=== PATIENT | female | born 1990 | race African-American/Black ===

== ENCOUNTER 2016-03-25 16:42 | Emergency (ER) | payer OTHER ==
[~2016-03-25] VITALS: Ht 157.5 cm; Wt 47.6 kg
[~2016-03-25 16:42] MED LIST: FLUCONAZOLE100 MG ORAL; IBUPROFEN600 MG ORAL; KEFLEX500 MG ORAL; NITROFURANTOIN100 M2 ORAL; NKM; PENLAC6.6 M1 TP
[2016-03-25 17:14] VITALS: BP 104/66
[2016-03-25 17:33] LABS: APPEARANCE,URINE CLEAR; KETONES,URINE NEGATIVE (NEGATIVE); LEUKOCYTE ESTERASE ,URINE 1+ (NEGATIVE); NITRITE,URINE NEGATIVE (NEGATIVE); PH,URINE 8 (4.5-8.0); PROTEIN,URINE NEGATIVE (NEGATIVE); UROBILINOGEN,URINE NORMAL MG/DL (0.0-1.0)
[2016-03-25 17:40] LABS: BACTERIA,URINE FEW /HPF; RBC,URINE 0-2 /HPF (0 - 2); SQUAMOUS EPITHELIAL CELL,UR MODERATE /LPF (NONE/OCC)
[2016-03-25] MEDS ORDERED: Lidocaine 1% MPF 10mg/ml 5ml ONE (17:58)
[2016-03-25] MEDS ORDERED: Azithromycin 250mg tab ORAL ONE (18:00)
--- NOTE | 2016-03-25 18:08 | Emergency Room Report ---
History of Present Illness General Chief Complaint: Female Urogenital Problems Source: Patient Present Illness [facility] The patient is a 25-year-old female presenting with gonorrhea exposure. The patient states that her male partner was diagnosed with gonorrhea one week prior and was treated with Rocephin and azithromycin. The patient states that she was sexually active with this partner before he was treated. The patient does admit to increased vaginal discharge which is described as clear to white for the past 2 days. The patient also admits to increased urinary frequency. The patient denies dysuria, hematuria, vaginal bleeding, abdominal pain, cramping, flank pain, nausea, vomiting, fever, chills Allergies: Coded Allergies: No Known Allergies (Unverified , 12/04/13) Patient History Past Medical History: see triage record Pertinent Family History: none Last Menstrual Period: 10/27/15 Now: No Reviewed Nursing Documentation: PMH: Agreed, PSxH: Agreed Nursing Documentation-PMH Past Medical History: No History, Except For Review of Systems All Other Systems: negative except mentioned in HPI Physical Exam Vital Signs Date Time Temp Pulse Resp B/P Pulse Ox O2 Delivery O2 Flow Rate FiO2 03/25/16 17:08 98.8 65 14 104/66 98 Room Air Sp02 EP Interpretation: reviewed, normal General Appearance: no apparent distress, alert, GCS 15, non-toxic Head: normocephalic, atraumatic Eyes: bilateral eye PERRL, bilateral eye normal inspection ENT: hearing grossly normal, normal pharynx, no angioedema, normal voice Neck: full range of motion, supple/symm/no masses Respiratory: chest non-tender, lungs clear, normal breath sounds, speaking full sentences Cardiovascular #1: regular rate, rhythm, no edema Cardiovascular #2: 2+ carotid (R), 2+ carotid (L), 2+ radial (R), 2+ radial (L) , 2+ dorsalis pedis (R), 2+ dorsalis pedis (L) Gastrointestinal: normal bowel sounds, non tender, soft, non-distended, no guarding, no rebound Rectal: deferred Genitourinary: normal inspection, no CVA tenderness Musculoskeletal: back normal, gait/station normal, normal range of motion, non- tender Neurologic: alert, oriented x3, responsive, motor strength/tone normal, sensory intact, speech normal Psychiatric: judgement/insight normal, memory normal, mood/affect normal, no suicidal/homicidal ideation Reflexes: 3+ bicep (R), 3+ bicep (L), 3+ tricep (R), 3+ tricep (L), 3+ knee (R) , 3+ knee (L) Skin: normal color, no rash, warm/dry, well hydrated Lymphatic: no adenopathy Medical Decision Making PA Attestation Dr. Evans is my supervising physician. Patient management was discussed with my supervising physician Diagnostic Impression: Primary Impression: STD exposure ER Course The patient is a 25-year-old female presenting with gonorrhea exposure. DDx: Sexually-transmitted infection, UTI, pyelonephritis, miscarriage PE: PE: Vitals WNL. NAD. Abdomen: Normal appearance. Non distended. No ecchymosis. Normal BS. Non TTP. No McBurney point tenderness. No guarding. No CVA tenderness Urinalysis: Unremarkable. 1+ leukocyte esterace with 2-4 WBC. The patient will be treated for sexually transmitted infection do to exposure. The patient is given Rocephin IM and 2 g of azithromycin. The patient will be discharged and is told to followup with [facility] as soon as possible. The patient and her partner will both be tested for STD before becoming sexually active Laboratory Tests Test 03/25/16 17:18 Urine Color Pale yellow Urine Appearance Clear Urine pH 8 (4.5-8.0) Urine Specific Steward 1.010 (1.005-1.035) Urine Protein Negative (NEGATIVE) Urine Glucose (UA) Negative (NEGATIVE) Urine Ketones Negative (NEGATIVE) Urine Occult Blood Negative (NEGATIVE) Urine Nitrite Negative (NEGATIVE) Urine Bilirubin Negative (NEGATIVE) Urine Urobilinogen Normal MG/DL (0.0-1.0) Urine Leukocyte Esterase 1+ (NEGATIVE) H Urine RBC 0-2 /HPF (0 - 2) Urine WBC 2-4 /HPF (0 - 2) Urine Squamous Epithelial Cells Moderate /LPF (NONE/OCC) H Urine Bacteria Few /HPF (NONE) Urine HCG, Qualitative Positive Lab Results Impression Urinalysis: Unremarkable. 1+ leukocyte esterace with 2-4 WBC. + preg Last Vital Signs Date Time Temp Pulse Resp B/P Pulse Ox O2 Delivery O2 Flow Rate FiO2 03/25/16 17:14 98.8 79 14 104/66 98 Room Air Status: improved Disposition: HOME, SELF-CARE Condition: Improved Patient Instructions: Sexually Transmitted Disease Additional Instructions: I discussed my findings with the patient. All questions and concerns have been answered. Treatment and medication compliance have been addressed. I advised the patient that they need to follow up with PMD in 3-5 days. Return to ED if symptoms worsen, new symptoms arise, or if needed for any reason. Patient verbalized understanding of discharge instructions. Follow up with [facility] YVES. THERESA REDMAN Mar 25, 2016 18:08
[2016-03-25 18:09] VITALS: BP 104/66
== END 2016-03-25 18:10 | disposition home or self-care (01) ==
LOC: EMR 17:23
DX: Z20.2 Contact with and (suspected) exposure to infections with a predominantly sexual mode of transmission (principal); N89.8 Other specified noninflammatory disorders of vagina
CPT/HCPCS: 81003; 81025; 96372; 99283; J0696; Q0144

== ENCOUNTER 2016-04-24 17:49 | Emergency (ER) | payer OTHER ==
[~2016-04-24] VITALS: Ht 157.5 cm; Wt 47.6 kg
[2016-04-24 18:18] VITALS: BP 117/56
[2016-04-24 18:49] LABS: APPEARANCE,URINE SLIGHTLY CLOUDY; KETONES,URINE NEGATIVE (NEGATIVE); PROTEIN,URINE NEGATIVE (NEGATIVE)
[2016-04-24 18:50] LABS: LEUKOCYTE ESTERASE ,URINE 2+ (NEGATIVE); NITRITE,URINE NEGATIVE (NEGATIVE); UROBILINOGEN,URINE NORMAL MG/DL (0.0-1.0)
[2016-04-24 18:59] LABS: BACTERIA,URINE FEW /HPF; RBC,URINE 0-2 /HPF (0 - 2); SQUAMOUS EPITHELIAL CELL,UR MODERATE /LPF (NONE/OCC)
[2016-04-24 19:25] VITALS: BP 117/56
[2016-04-24] MEDS ORDERED: KEFLEX250 M1 PO (19:27)
--- NOTE | 2016-04-24 20:36 | Emergency Room Report ---
History of Present Illness General Chief Complaint: Female Urogenital Problems Source: Patient Present Illness [facility] The patient is a 25-year-old female at 25 weeks gestation presenting for yellow vaginal discharge, vaginal itching, and vaginal swelling which began one week prior. The pt denies dysuria, hematuria, or other vaginal DC. Pt also denies N, V, F, chills, flank pain, abd pain, cramping Allergies: Coded Allergies: No Known Allergies (Unverified , 12/04/13) Patient History Past Medical History: see triage record Pertinent Family History: none Last Menstrual Period: 10/24/15 Now: Yes - 25 wk Reviewed Nursing Documentation: PMH: Agreed, PSxH: Agreed Nursing Documentation-PMH Past Medical History: No History, Except For Review of Systems All Other Systems: negative except mentioned in HPI Physical Exam Vital Signs Date Time Temp Pulse Resp B/P Pulse Ox O2 Delivery O2 Flow Rate FiO2 04/24/16 18:04 97.7 93 16 117/56 99 Room Air Sp02 EP Interpretation: reviewed, normal General Appearance: no apparent distress, alert, GCS 15, non-toxic Head: normocephalic, atraumatic Eyes: bilateral eye PERRL, bilateral eye normal inspection ENT: hearing grossly normal, normal pharynx, no angioedema, normal voice Neck: full range of motion, supple/symm/no masses Gastrointestinal: normal bowel sounds, non tender, soft, no mass, no guarding, no rebound Genitourinary: normal inspection, no CVA tenderness Musculoskeletal: back normal, gait/station normal, normal range of motion, non- tender Neurologic: alert, oriented x3, responsive, motor strength/tone normal, sensory intact, speech normal Psychiatric: judgement/insight normal, memory normal, mood/affect normal, no suicidal/homicidal ideation Skin: normal color, no rash, warm/dry, well hydrated Lymphatic: no adenopathy Medical Decision Making PA Attestation Dr. Foy is my supervising physician. Patient management was discussed with my supervising physician Diagnostic Impression: Primary Impression: UTI (urinary tract infection) ER Course The patient is a 25-year-old female at 25 weeks gestation presenting for yellow vaginal discharge, vaginal itching, and vaginal swelling which began one week prior Differential diagnosis considered but not limited to: UTI, vaginitis, pyelonephritis, STD, BV, vaginal yeast infection PE: vitals WNL. NAD Abdomen is soft and nontender. Normal bowel sounds. No guarding. No CVA tenderness. There is abdominal distention consistent with . Urinalysis is consistent with urinary tract infection. The patient will be discharged with a prescription for Keflex and will followup with [facility] as soon as possible for further treatment and evaluation. The patient states that she will make an appointment as soon as possible. ER precautions are given Last Vital Signs Date Time Temp Pulse Resp B/P Pulse Ox O2 Delivery O2 Flow Rate FiO2 04/24/16 18:18 97.7 93 16 117/56 99 Room Air Status: improved Disposition: HOME, SELF-CARE Condition: Improved Scripts Cephalexin (Keflex) 250 Mg Capsule 250 MG PO Q6HR, #28 CAP Prov: THERESA REDMAN 04/24/16 Referrals: [facility],REFERR[facility] (PCP) Patient Instructions: Urinary Tract Infection Additional Instructions: I discussed my findings with the patient. All questions and concerns have been answered. Treatment and medication compliance have been addressed. I advised the patient that they need to follow up with PMD in 3-5 days. Return to ED if symptoms worsen, new symptoms arise, or if needed for any reason. Patient verbalized understanding of discharge instructions. The patient is advised to followup with [facility] as soon as possible THERESA REDMAN Apr 24, 2016 20:36
== END 2016-04-24 19:25 | disposition home or self-care (01) ==
LOC: EMR 18:35
DX: O23.42 Unspecified infection of urinary tract in pregnancy, second trimester (principal); Z3A.25 25 weeks gestation of pregnancy
CPT/HCPCS: 81003; 81025; 87086; 99283

== ENCOUNTER 2016-08-12 16:57 | Emergency (ER) | payer OTHER ==
[~2016-08-12] VITALS: Ht 157.5 cm; Wt 45.4 kg
[~2016-08-12 16:57] MED LIST changes: +KEFLEX250 M1 PO
[2016-08-12] MEDS ORDERED: Ipratropium 0.02% Inh Soln 2.5ml UD HHN ONE (17:30)
[2016-08-12] MEDS ORDERED: Albuterol ud Inhalation HHN ONE (17:30)
[2016-08-12 17:36] VITALS: BP 116/83
[2016-08-12] MEDS ORDERED: AMOXICILLIN500 MG ORAL (18:29)
[2016-08-12] MEDS ORDERED: PREDNISONE20 MG ORAL (18:29)
[2016-08-12 18:56] VITALS: BP 118/82
[2016-08-12 18:59] VITALS: BP 118/82
--- NOTE | 2016-08-12 20:46 | Emergency Room Report ---
History of Present Illness General Chief Complaint: Upper Respiratory Illness Source: Patient Present Illness HPI The patient is a 25-year-old female who denies medical history presenting for cough, sore throat, and shortness of breath for the past 3 days. The patient went to another emergency department where a chest x-ray was done and was said to be unremarkable. She was discharged with a prescription for albuterol only which has not been helping. The patient states pain is a 5/10 dull ache to the mid chest and occurs only with coughing. She denies any sick contacts recent travel. She denies other symptoms including N, V, F, chills, rash, diaphoresis Allergies: Coded Allergies: No Known Allergies (Unverified , 12/04/13) Patient History Past Medical History: see triage record Pertinent Family History: none Last Menstrual Period: 10/26/2015 Now: No Reviewed Nursing Documentation: PMH: Agreed, PSxH: Agreed Nursing Documentation-PMH Past Medical History: No History, Except For Hx Asthma: Yes - Bronchittis Review of Systems All Other Systems: negative except mentioned in HPI Physical Exam Vital Signs Date Time Temp Pulse Resp B/P Pulse Ox O2 Delivery O2 Flow Rate FiO2 08/12/16 17:03 97.2 98 16 116/83 98 Room Air 08/12/16 17:40 21 Sp02 EP Interpretation: reviewed, normal General Appearance: no apparent distress, alert, GCS 15, non-toxic Head: normocephalic, atraumatic Eyes: bilateral eye PERRL, bilateral eye normal inspection ENT: hearing grossly normal, no angioedema, normal voice, TMs + canals normal, uvula midline, tonsillar swelling, pharyngeal erythema Neck: full range of motion, supple/symm/no masses Respiratory: chest non-tender, lungs clear, normal breath sounds, no respiratory distress, no accessory muscle use, no wheezing, speaking full sentences Cardiovascular #1: regular rate, rhythm, no edema Musculoskeletal: back normal, gait/station normal, normal range of motion, non- tender Neurologic: alert, oriented x3, responsive, motor strength/tone normal, sensory intact, speech normal Psychiatric: judgement/insight normal, memory normal, mood/affect normal, no suicidal/homicidal ideation Skin: normal color, no rash, warm/dry, well hydrated Lymphatic: adenopathy Medical Decision Making PA Attestation Dr. Arnold is my supervising physician. Patient management was discussed with my supervising physician Diagnostic Impression: Primary Impression: Pharyngitis, acute Qualified Codes: J02.9 - Acute pharyngitis, unspecified ER Course The patient is a 25-year-old female who denies medical history presenting for cough, sore throat, and shortness of breath Differential diagnosis include but not limited to pharyngitis, asthma, sinusitis , AOM, bronchitis, PNA Physical exam: Vitals within normal limits. Afebrile. No apparent distress HEENT exam: There is bilateral tonsillar edema, erythema. Uvula midline. Moist mucous membranes. There is bilateral cervical lymphadenopathy. Lungs are clear to auscultation bilaterally Skin is warm and dry. No rash The patient was given breathing treatment to see if SOB symptoms improve. It has not. The patient will be discharged home with a prescription for amoxicillin, prednisone, and is given ER precautions. Patient will followup with primary care Last Vital Signs Date Time Temp Pulse Resp B/P Pulse Ox O2 Delivery O2 Flow Rate FiO2 08/12/16 18:59 97.2 89 16 118/82 98 Room Air 21 Status: improved Disposition: HOME, SELF-CARE Condition: Improved Scripts Prednisone* (PREDNISONE*) 20 Mg Tablet 40 MG ORAL DAILY, #8 TAB Prov: THERESA REDMAN.A. 08/12/16 Amoxicillin* (AMOXIL*) 500 Mg Capsule 500 MG ORAL Q12HR, #20 CAP Prov: THERESA REDMAN P.A. 08/12/16 Patient Instructions: Pharyngitis Additional Instructions: I discussed my findings with the patient. All questions and concerns have been answered. Treatment and medication compliance have been addressed. I advised the patient that they need to follow up with PMD in 3-5 days. Return to ED if pain remains or worsens, cough worsens or remains, you notice blood in your sputum, you notice wheezing, you experience a fever, or if needed for any reason. Patient verbalized understanding of discharge instructions. THERESA REDMAN August 12, 2016 20:46
== END 2016-08-12 19:04 | disposition home or self-care (01) ==
LOC: EMR 17:24
DX: J02.9 Acute pharyngitis, unspecified (principal)
CPT/HCPCS: 94640; 94664; 99284